=== PATIENT | male | born 1985 | race Caucasian/White ===

== ENCOUNTER 2021-07-20 16:15 | Emergency (ER) | payer BC, SELFPAY ==
--- NOTE | ~2021-07-20 | CT_ITS ---
EXAMINATION: CT abdomen pelvis wo con DATE: 07/20/2021 20:15 INDICATION: fever, transaminitis, hyperbilirubinemia TECHNIQUE: Computed tomography (CT) of the abdomen and pelvis was performed without intravenous contr ast. Automated exposure control and iterative reconstruction technique were employed. The dose-length product was 644.97 mGy-cm. COMPARISON: None FINDINGS: Lower thorax: Unremarkable Liver: Normal. Biliary/Gallbladder: Gallbladder is normal. No bile duct dilation. Pancreas: No mass or duct dilation. Spleen: Normal. Adrenals:No mass. Kidneys: No mass, stone, or hydronephrosis. GI tract: No small or large bowel dilation. Normal appendix. Mesentery/Peritoneum: No ascites, mass, or free air. Retroperitoneum: No mass. Pelvis: Pelvic organs are within normal limits. Soft Tissues: Soft tissues and body wall unremarkable. Bones: No acute osseous finding. IMPRESSION: No acute abdominopelvic process detected. Reviewed, dictated and finalized at location K.
--- NOTE | ~2021-07-20 | XR_ITS ---
EXAMINATION: XR chest 1V portable Exam Date/Time: 07/20/2021 19:20 CDT HISTORY: fever Comparison: None available. RESULT: Lines, tubes, and devices: None. Lungs and pleura: Clear. Cardiomediastinal silhouette: Normal cardiomediastinal silhouette. Other: No acute osseous or upper abdominal finding. IMPRESSION: No acute cardiopulmonary process. Reviewed, dictated and finalized at location K.
[2021-07-20 16:44] VITALS: BP 128/81; PULSE 104; RESP 18; TEMP 36.7; O2SAT 97
--- NOTE | 2021-07-20 18:23 | ED.FEVER ---
HPI - Fever General Chief Complaint: Fever Stated Complaint: FEVER,BODY ACHES Time Seen by Provider: 07/20/21 18:11 History of Present Illness HPI Narrative: The patient is a 36-year-old male with no previous medical history who is presenting to the emergency department for evaluation of fever and myalgias. Patient states he began to feel unwell this morning and presented to an urgent care where he was found to have a 103.5 Fahrenheit fever. Patient was given Tylenol for this and ultimately referred to this facility, stating that they were not able to do any blood work or further ancillary testing. Patient denies any other systemic symptoms aside from fever and myalgias. He denies headache, neck pain. No nausea, vomiting or abdominal pain. He denies cough, chest pain, shortness of breath. He denies rash or lesions. He denies any lymphadenopathy. Patient recently traveled to this area from [place]. States that he was tested for influenza and COVID at the urgent care all of which were negative. He denies back or flank pain. He denies testicular pain or penile pain. Patient has no known history of cancer. Patient denies dysuria or hematuria. Denies recent hunting or tick exposure. Patient denies recent sick contacts. Related Data Allergies Allergy/AdvReac Type Severity Reaction Status Date / Time No Known Allergies Allergy Verified 07/20/21 19:36 Review of Systems Review of Systems: CONSTITUTIONAL: Reports fever and sweats EYES: Denies visual changes, redness, or discharge. ENT: Denies rhinorrhea, congestion, sore throat, or otalgia. CARDIOVASCULAR: Denies chest pain, palpitations, or edema. RESPIRATORY: Denies cough or dyspnea. GASTROINTESTINAL: Denies abdominal pain, nausea, vomiting, or diarrhea. GENITOURINARY: Denies dysuria or hematuria. SKIN: Denies rash or itching. MUSCULOSKELETAL: Denies back pain, reports myalgias NEUROLOGIC: Denies headache, numbness, or weakness. [facility] Social History Social History (Updated 07/20/21 @ 19:22 by Yvette Rubio MD) Smoking status: Never smoker Alcohol intake: never Substance use: never Gender identity (if verbalized by the patient): Male Exam Narrative: GENERAL: Awake, alert, conversant HEAD: Normocephalic, atraumatic. EYES: PERRLA and EOMI. ENT: Nares clear, no rhinorrhea or epistaxis. Mucous membranes moist. No anterior or submandibular cervical and adenopathy. Tympanic membranes are clear bilaterally without erythema, effusion. NECK: Supple. No anterior posterior cervical lymphadenopathy. No thyromegaly. No tenderness to palpation of the thyroid. CHEST: No respiratory distress, breathing even and non labored, lungs are clear to auscultation bilaterally HEART: Mild tachycardia rate, sinus rhythm ABDOMEN:Non distended, non tender in all 4 quadrants with no rebound, rigidity or guarding EXTREMITIES: Normal range of motion. No edema. SKIN: Warm, dry, no rash. NEURO:No focal deficits. Alert and oriented x3 Course Vital Signs Vital signs: Vital Signs Temperature 36.7 C 07/20/21 16:44 Pulse Rate 104 H 07/20/21 16:44 Respiratory Rate 18 07/20/21 16:44 Blood Pressure 128/81 07/20/21 16:44 Pulse Oximetry 97 07/20/21 16:44 Oxygen Delivery Room Air 07/20/21 16:44 Temperature 36.7 C 07/20/21 16:44 Pulse Rate 78 07/20/21 19:45 Respiratory Rate 18 07/20/21 19:45 Blood Pressure 126/78 07/20/21 19:45 Pulse Oximetry 97 07/20/21 16:44 Oxygen Delivery Room Air 07/20/21 16:44 MDM - Fever MDM Narrative Medical decision making narrative: Patient presented referred from urgent care for evaluation of high fever, myalgias. At the time of assessment, ABCs are intact and vital signs are notable for mild tachycardia. Patient is afebrile at the time of assessment but did have Tylenol prior to arrival. Physical exam is reassuring. There is no lymphadenopathy. No headache, neck pain or meningeal signs. No nuchal rigidity. Patient
--- NOTE | 2021-07-20 19:17 | ECG_ITS ---
Measurements Intervals [place] Rate: 90 P: 43 VA: 150 QRS: 43 QRSD: 88 T: 38 QT: 330 QTc: 405 Interpretive Statements SINUS RHYTHM WITHIN NORMAL LIMITS NO PREVIOUS ECG AVAILABLE FOR COMPARISON Electronically Signed On 07-21-2021 7:25:22 CDT by Donato Mireles M.D.
[2021-07-20] MEDS: SODIUM CHLORIDE 0.9% IV 1,000 ML 999 ML IV CONT (19:36)
[2021-07-20 19:39] LABS: Basophils Percent Auto 0.6 % (0.2-1.2); Hematocrit 43.5 % (42.0-52.0); Hemoglobin 14.5 g/dL (14.0-18.0); Immature Granulocyte Absolute 0.02 K/mm3 (0.00-0.031); Immature Granulocyte Percent A 0.6 % (0-0.5); Lymphocytes Absolute Auto 0.58 K/mm3 (0.9-3.2); Lymphocytes Percent Auto 18.5 % (18.3-44.2); Mean Corpuscular HGB Conc 33.3 g/dl (32-36); Mean Corpuscular Hemoglobin 28.4 pg (26-34); Mean Corpuscular Volume 85.1 fl (80-100); Mean Platelet Volume 9.9 fl (7.4-10.4); Monocytes Absolute Auto 0.5 K/mm3 (0.1-0.6); Monocytes Percent Auto 15.9 % (2.6-8.5); Neutrophils Percent Auto 64.4 % (45.5-73.1); Platelet Count Result 140 k/mm3 (150-375); Red Blood Count 5.11 M/mm3 (4.6-6.20); Red Cell Distribution Width 13.2 % (11.5-14.5); White Blood Count 3.1 K/mm3 (4.5-10.0)
[2021-07-20 19:45] VITALS: BP 126/78; PULSE 78; RESP 18
[2021-07-20 19:50] LABS: Lactic Acid Reflex 0.8 mmol/L (0.7-2.0)
[2021-07-20 19:52] LABS: Alanine Aminotransferase 92 U/L (6-50); Albumin Level 4.1 g/dL (3.5-5.1); Alkaline Phosphatase 70 U/L (38-126); Anion Gap 3 mmol/L (8-16); Aspartate Amino Transferase 70 U/L (17-59); Bilirubin,Total 1.5 mg/dL (0.2-1.3); Blood Urea Nitrogen 14 mg/dL (9-20); CRP 4.8 mg/dL (<1.0); Calcium 8.5 mg/dL (8.4-10.2); Carbon Dioxide 29 mmol/L (22-30); Chloride 102 mmol/L (98-107); Estimated CRCL calculation 86 ml/min; Estimated Glomerular Filt Rate > 60; Glucose 105 mg/dL (65-110); Potassium 3.9 mmol/L (3.4-5.0); Sodium 134 mmol/L (137-145)
[2021-07-20 20:07] LABS: Monoscreen Negative (Negative); Negative Monotest Control Negative (Negative); Positive Monotest Control Positive (Positive)
[2021-07-20 20:15] LABS: Influenza A QL RT-PCR Negative (Negative); Influenza B QL RT-PCR Negative (Negative); SARS-CoV-2 RNA PCR Negative
[2021-07-20 21:13] LABS: Appearance Urine Clear (Clear); Bilirubin Urine Negative (Negative); Blood Urine Negative (Negative); Color Urine Yellow (Yellow); Glucose Urine UA Negative (Negative); Ketones Urine Negative (Negative); Leukocyte Esterase Ur Negative LEU/UL (Negative); Nitrate Urine Negative (Negative); Protein Urine Negative (Negative); Specific Grav Ur 1.015 (1.001-1.035); pH Urine 6.5 (5.0-9.0)
[2021-07-20 21:17] LABS: Mucus Urine Rare /lpf; RBC Urine 0-2 /hpf (0-2); WBC Urine 0-3 /hpf
[2021-07-20 21:18] LABS: Add Urine Microscopic? NO
[2021-07-20 21:34] VITALS: BP 132/78; PULSE 80; RESP 20; O2SAT 99
== END 2021-07-20 21:35 | disposition home or self-care (01) ==
PROVIDERS: Emergency Provider Emergency Medicine
DX: R50.9 Fever, unspecified (principal); R74.01 Elevation of levels of liver transaminase levels; Z20.822 Contact with and (suspected) exposure to COVID-19
CPT/HCPCS: 36415; 71045; 74176; 80053; 81003; 83605; 85025; 86140; 86308; 87502; 93005; 96360; 99284; C9803; J7030; U0003; U0005